=== PATIENT | female | born 1995 | race Caucasian/White ===

== ENCOUNTER 2018-11-08 03:26 | Observation (INO) | payer MEDICAID ==
[~2018-11-08] VITALS: Ht 167.6 cm; Wt 100.7 kg
[2018-11-08] MEDS ORDERED: FISH MT (04:21)
[2018-11-08] MEDS ORDERED: PREN1TAB78 MT (04:21)
[2018-11-08] MEDS ORDERED: FERR-71 MT (04:21)
== END 2018-11-08 06:06 | disposition home or self-care (01) ==
LOC: 8 EST LDRP 03:26
PROVIDERS: ADMIT Obstetrics & Gynecology; ATTEND Obstetrics & Gynecology
DX: O26.892 Other specified pregnancy related conditions, second trimester (principal); R10.30 Lower abdominal pain, unspecified; Z3A.24 24 weeks gestation of pregnancy
CPT/HCPCS: 99281; G0378

== ENCOUNTER 2019-02-21 07:45 | Emergency (ER) | payer MEDICAID ==
[~2019-02-21] VITALS: Ht 167.6 cm; Wt 93.0 kg
[~2019-02-21 07:45] MED LIST: FERR-71 MT; FISH MT; PREN1TAB78 MT
[2019-02-21] MEDS ORDERED: ACETAMINOPHEN 325MG TABLET PO STA (08:29)
[2019-02-21 08:52] LABS: BASOPHILS % 0.5 % (0.0-2.0); EOSINOPHILS % 1.8 % (0.0-5.0); HEMATOCRIT. 34.9 % (36.0-48.0); HEMOGLOBIN. 11.5 g/dL (12.0-16.0); MEAN CORPUSCULAR HEMOGLOBIN 28.4 pg (28.0-32.0); MEAN CORPUSCULAR VOLUME 86.2 fL (81.0-99.0); MEAN PLATELET VOLUME 7.6 fl (7.4-10.4); MONOCYTES % 3.7 % (2.0-8.0); PLATELET 463 x1000/uL (130-400); RED BLOOD CELL COUNT 4.04 mill/uL (4.2-5.4); RED CELL DISTRIBUTION WIDTH 15.6 % (11.6-14.6)
[2019-02-21 08:57] LABS: CLARITY URINE CLOUDY (CLEAR); COLOR URINE YELLOW (YELLOW); KETONES URINE NEGATIVE (NEGATIVE); LEUKOCYTE ESTERASE URINE 2+ (NEGATIVE); NITRITE URINE NEGATIVE (NEGATIVE); OCCULT BLOOD URINE 3+ (NEGATIVE); PROTEIN URINE NEGATIVE (NEGATIVE); SPECIFIC GRAVITY URINE 1.024 (1.005-1.030)
[2019-02-21 08:58] LABS: CHLORIDE 106 mEq/L (98-107)
[2019-02-21 11:47] VITALS: BP 117/70
== END 2019-02-21 11:51 | disposition home or self-care (01) ==
LOC: ER 07:45
DX: L76.34 Postprocedural seroma of skin and subcutaneous tissue following other procedure (principal); N39.0 Urinary tract infection, site not specified; Y83.8 Other surgical procedures as the cause of abnormal reaction of the patient, or of later complication, without mention of misadventure at the time of the procedure; Y92.018 Other place in single-family (private) house as the place of occurrence of the external cause
CPT/HCPCS: 36415; 76705; 80053; 81003; 81025; 85025; 87077; 87086; 99284; A4217; Z7610